=== PATIENT | female | born 1965 | race African-American/Black ===

== ENCOUNTER 2021-12-09 23:25 | Inpatient (IN) | payer MEDICARE, OTHER ==
[~2021-12-09] VITALS: Ht 152.4 cm; Wt 77.7 kg
--- NOTE | 2021-12-09 23:59 | NUR ---
After being triaged, patient was placed in hallway with rescue on their gurny to wait for bed opening in the ER.
--- NOTE | 2021-12-10 | NUR ---
DR. PRIDE AT BEDSIDE, MSE IN PROGRESS.
[2021-12-10] MEDS ORDERED: FAMO20TA8 PO (00:10)
[2021-12-10] MEDS ORDERED: RIFA550T PO (00:10)
[2021-12-10] MEDS ORDERED: GABA-532 PO (00:10)
[2021-12-10] MEDS ORDERED: METH1POW39 MC (00:10)
[2021-12-10] MEDS ORDERED: novolog SUBCUT (00:10)
[2021-12-10] MEDS ORDERED: CHOL100053 PO (00:10)
[2021-12-10] MEDS ORDERED: URSO300C12 PO (00:10)
[2021-12-10] MEDS ORDERED: ASCO500C18 PO (00:10)
[2021-12-10] MEDS ORDERED: PRED2.5T PO (00:10)
[2021-12-10] MEDS ORDERED: SENN-261 PO (00:10)
[2021-12-10] MEDS ORDERED: nifedipine PO (00:10)
[2021-12-10] MEDS ORDERED: SIME80TA15 PO (00:10)
--- NOTE | 2021-12-10 00:30 | NUR ---
Placed in room 2a.
[2021-12-10 00:34] LABS: MEAN CORPUSCULAR HEMOGLOBIN 31.4 uug (24.7-32.8); MEAN CORPUSCULAR VOLUME 93.3 fL (75.5-95.3); PLATELET COUNT (AUTO) 302 K/uL (179-408)
[2021-12-10 00:45] LABS: CARBON DIOXIDE 20 mmol/L (21-32); CHLORIDE 93 mmol/L (98-107); CREATININE 1.3 mg/dL (0.6-1.3); GLUCOSE 88 mg/dL (74-106); POTASSIUM 3.7 mmol/L (3.5-5.1); UREA NITROGEN, BLOOD 25 mg/dL (7-18)
[2021-12-10 01:00] LABS: ALANINE AMINOTRANSFERASE 65 U/L (14-59); ALKALINE PHOSPHATASE 554 U/L (50-136); ASPARTATE AMINOTRANSFERASE 59 U/L (15-37); BILIRUBIN,DIRECT 10.8 mg/dL (0.0-0.2); BILIRUBIN,TOTAL 12.1 mg/dL (0.2-1.0); TOTAL PROTEIN, SERUM 6.2 g/dL (6.4-8.2)
--- NOTE | 2021-12-10 01:27 | NUR ---
PT IS RESTING COMFORTABLY, DAUGHTER JANAY AT BEDSIDE. DENIES ANY PAIN/DISCOMFORT AT THIS TIME.
[2021-12-10 02:04] LABS: *BILIRUBIN,URIN 3+ (NEGATIVE); *BLOOD, URINE TRACE (NEGATIVE); *COLOR,URINE AMBER (YELLOW); *KETONES,URINE TRACE (NEGATIVE); LEUKOCYTE ESTERASE ,URINE 3+ (NEGATIVE); NITRITE, URINE NEGATIVE (NEGATIVE); PH,URINE 6.5 (5.0-8.0); UGLUCOSE NEGATIVE (NEGATIVE)
[2021-12-10 02:05] LABS: *CLARITY,URINE HAZY (CLEAR)
[2021-12-10 02:11] LABS: BACTERIA,URINE MANY /HPF (NONE SEEN); SQUAMOUS EPITHELIAL CELL,UR FEW /HPF (NONE SEEN); WBC,URINE 20-50 /HPF (0-3)
[2021-12-10] MEDS ORDERED: AZITHROMYCIN IV 500 MG in IV DEXTROSE 5% 250 ML IV ONE (02:15)
[2021-12-10] MEDS ORDERED: PIPERACILLIN SODIUM/TAZOBACTAM 3.375 G in IV DEXTROSE 5% 50 ML IV ONE (02:15)
[2021-12-10] MEDS ORDERED: AZITHROMYCIN 500MG/ D5W 250ML IVPB **ER PYXIS ONLY IV ONE (02:17)
[2021-12-10] MEDS ORDERED: PIPERACILLIN/TAZOBACTAM/D5W 50 ML IV ONE (02:17)
[2021-12-10] MEDS ORDERED: IV NORMAL SALINE 500 ML IV ONE (03:00)
--- NOTE | 2021-12-10 03:01 | NUR ---
CALLED [facility], SARY ZAMORANO.
[2021-12-10] MEDS ORDERED: ONDANSETRON 4 MG/2 ML VIAL IV PRN (03:15)
[2021-12-10] MEDS ORDERED: SIMETHICONE 80 MG TAB.CHEW PO PRN (03:15)
[2021-12-10] MEDS ORDERED: REMEDY ESSENTIAL ZINC PASTE 113 GM TP PRN (03:15)
--- NOTE | 2021-12-10 05:15 | NUR ---
GAVE REPORT TO
--- NOTE | 2021-12-10 05:40 | NUR ---
Received pt from er via christine. Under the care of Deep Tirado DNP. Dx: Sepsis .Belonging list done. Admission process and care plan initiated. Pt in no acute distress. intermediate assessment done. Vital signs within normal limit. Safety and comfort provided. Will endorse to incoming nurse and will continue to monitor.
--- NOTE | 2021-12-10 05:47 | NUR ---
Pt. admitted to Med Surg , under care of Dr.Noel Tirado Dx: UTI Belongs List completed
[2021-12-10] MEDS ORDERED: PIPERACILLIN SODIUM/TAZOBACTAM 3.375 G in IV DEXTROSE 5% 50 ML IV SCH (06:00)
[2021-12-10] MEDS: IV NS 1000 ML 1,000 ML IV PRN (06:08)
[2021-12-10] MEDS: PANTOPRAZOLE SODIUM 40 MG TABLET.DR PO SCH (06:10)
[2021-12-10] MEDS ORDERED: NIFE-35 PO (07:39)
[2021-12-10 08:33] LABS: CREATININE 1.2 mg/dL (0.6-1.3); POTASSIUM 3.6 mmol/L (3.5-5.1)
[2021-12-10] MEDS: SENNOSIDES 1 TABLET PO SCH ×2 (09:00→16:03)
[2021-12-10] MEDS ORDERED: predniSONE 2.5 MG TABLET PO SCH (09:00)
[2021-12-10] MEDS: ASCORBIC ACID 500 MG TABLET PO SCH (09:20)
[2021-12-10] MEDS: predniSONE 5 MG TABLET PO SCH (09:20)
[2021-12-10] MEDS: RIFAXIMIN 550 MG TABLET PO SCH ×2 (09:21→16:03)
[2021-12-10] MEDS: GABAPENTIN 100 MG CAPSULE PO SCH ×2 (09:21→16:02)
[2021-12-10] MEDS: CHOLECALCIFEROL 1,000 UNIT TABLET PO SCH (09:21)
[2021-12-10] MEDS: URSODIOL 300 MG CAPSULE PO SCH ×3 (09:21→16:04)
[2021-12-10] MEDS: NIFEdipine XL 30 MG TABSR PO SCH (09:41)
[2021-12-10] MEDS ORDERED: PIPERACILLIN SODIUM/TAZOBACTAM 3.375 G in IV DEXTROSE 5% 100 ML IV SCH (10:00)
[2021-12-10] MEDS ORDERED: DEXTROSE 50% 50 ML DISP.SYRIN IV PRN (11:45)
--- NOTE | 2021-12-10 11:52 | NUR ---
Pt is a/o x 4, reports that she is tired and wants to sleep. No reaction noted or reported post antibiotic treatment. Pt is verbal and able to express needs. Comfort measures provided, call light within reach. Will continue to monitor.
[2021-12-10 12:00] VITALS: BP 105/42
[2021-12-10] MEDS: BLOOD SUGAR DIAGNOSTIC 1 EACH STRIP VI SCH ×2 (15:56→21:15)
[2021-12-10 15:58] VITALS: BP 111/48
[2021-12-10] MEDS: INSULIN REGULAR, HUMAN 300 UNIT/3 ML VIAL SQ PRN ×2 (15:58→21:29)
[2021-12-10] MEDS: CEFTAZIDIME 2 G in IV DEXTROSE 5% 100 ML IV SCH (18:16)
--- NOTE | 2021-12-10 19:15 | NUR ---
Received patient on bed, sleeping, with ongoing 0.9 NS 1L at 75cc/hr, not in labored breathing. Safety precautions provided call light placed within reach.
[2021-12-10 20:04] VITALS: BP 110/68
[2021-12-10] MEDS: AZITHROMYCIN 250 MG TABLET PO SCH (21:08)
--- NOTE | 2021-12-10 21:10 | NUR ---
Patient awake, offered soup and crackers, able to eat independently, ate 75%. Oral antibiotic given as ordered. Assisted to repositioned for comfort.
[2021-12-11] MEDS: CEFTAZIDIME 2 G in IV DEXTROSE 5% 100 ML IV SCH ×3 (01:02→17:05)
[2021-12-11 04:00] VITALS: BP 97/45
--- NOTE | 2021-12-11 05:32 | NUR ---
Slept well, no complaint of pain, no signs of distress. Repositioned for comfort, incontinent both bowel and bladder. Still with ongoing IVF 0.9 NS 1L at 75cc/hr. To continue to monitor.
[2021-12-11] MEDS: PANTOPRAZOLE SODIUM 40 MG TABLET.DR PO SCH (06:12)
[2021-12-11] MEDS: BLOOD SUGAR DIAGNOSTIC 1 EACH STRIP VI SCH ×4 (06:21→21:15)
--- NOTE | 2021-12-11 06:26 | NUR ---
blood sugar 88mg/dl, patient fully awake and alert oriented x4, no signs of distress noted. Offered a glass of juice. Able to drink 100%.
[2021-12-11 06:48] LABS: HEMATOCRIT 24.8 % (31.2-41.9); MEAN CORPUSCULAR HEMOGLOBIN 30.8 uug (24.7-32.8); MEAN CORPUSCULAR VOLUME 92.5 fL (75.5-95.3); PLATELET COUNT (AUTO) 292 K/uL (179-408)
[2021-12-11 07:02] LABS: ALANINE AMINOTRANSFERASE 53 U/L (14-59); ALKALINE PHOSPHATASE 460 U/L (50-136); ASPARTATE AMINOTRANSFERASE 37 U/L (15-37); BILIRUBIN,TOTAL 11.6 mg/dL (0.2-1.0); CARBON DIOXIDE 21 mmol/L (21-32); CHLORIDE 96 mmol/L (98-107); CREATININE 1.3 mg/dL (0.6-1.3); GLUCOSE 96 mg/dL (74-106); MAGNESIUM 1.8 mg/dL (1.8-2.4); PHOSPHOROUS 3.8 mg/dL (2.5-4.9); POTASSIUM 3.6 mmol/L (3.5-5.1); TOTAL PROTEIN, SERUM 5.8 g/dL (6.4-8.2); UREA NITROGEN, BLOOD 23 mg/dL (7-18)
[2021-12-11 07:36] LABS: BAND % (MANUAL) 1 % (0-10); EOSINOPHILS % (MANUAL) 1 % (0-8); LYMPHOCYTES % (MANUAL) 5 % (20-40); MONOCYTES % (MANUAL) 5 % (2-10); NEUTROPHILS % (MANUAL) 88 % (42-75)
[2021-12-11 07:47] LABS: CREATINE KINASE, TOTAL < 7 U/L (26-192)
[2021-12-11] MEDS: NIFEdipine XL 30 MG TABSR PO SCH (08:55)
[2021-12-11] MEDS: predniSONE 5 MG TABLET PO SCH (08:55)
[2021-12-11] MEDS: GABAPENTIN 100 MG CAPSULE PO SCH ×2 (08:55→17:07)
[2021-12-11] MEDS: SENNOSIDES 1 TABLET PO SCH ×2 (08:55→17:07)
[2021-12-11] MEDS: ASCORBIC ACID 500 MG TABLET PO SCH (08:55)
[2021-12-11] MEDS: CHOLECALCIFEROL 1,000 UNIT TABLET PO SCH (08:56)
[2021-12-11] MEDS: RIFAXIMIN 550 MG TABLET PO SCH ×2 (08:56→17:07)
[2021-12-11] MEDS: URSODIOL 300 MG CAPSULE PO SCH ×3 (08:57→17:07)
[2021-12-11] MEDS ORDERED: IV NORMAL SALINE 500 ML BAG IV ONE (09:00)
--- NOTE | 2021-12-11 09:00 | NUR ---
received patient sleeping in no apparent distress. patient denies any pain at this time. Morning medication administered and tolerated well. IV site in place and patent at this time, x1 time bolus of NS 500cc administered and tolerated well. v/sbp:112/43 p:73, morning medication administered and tolerated well. reminded patient to use call light for assistance.
[2021-12-11] MEDS ORDERED: IV NORMAL SALINE 500 ML IV ONE (09:15)
[2021-12-11 11:44] VITALS: BP 120/47
[2021-12-11 16:19] VITALS: BP 103/39
[2021-12-11 16:48] LABS: *BILIRUBIN,URIN 3+ (NEGATIVE); *BLOOD, URINE NEGATIVE (NEGATIVE); *CLARITY,URINE SLIGHTLY CLOUDY (CLEAR); *COLOR,URINE YELLOW (YELLOW); *KETONES,URINE NEGATIVE (NEGATIVE); *UROBILINOGEN,URINE 0.2 E.U./dl (NORMAL); LEUKOCYTE ESTERASE ,URINE 3+ (NEGATIVE); NITRITE, URINE NEGATIVE (NEGATIVE); UGLUCOSE NEGATIVE (NEGATIVE)
[2021-12-11 17:00] LABS: *CREATININE,URINE 40.7 mg/dL (30-125); *URINE TOTAL PROTEIN RANDOM 38.9 mg/dL (<150/24HR)
[2021-12-11] MEDS: INSULIN REGULAR, HUMAN 300 UNIT/3 ML VIAL SQ PRN (17:17)
[2021-12-11] MEDS: IV NS 1000 ML 1,000 ML IV PRN (17:24)
[2021-12-11 20:00] VITALS: BP 97/44
[2021-12-11] MEDS: AZITHROMYCIN 250 MG TABLET PO SCH (21:06)
[2021-12-11 23:33] LABS: BACTERIA,URINE MODERATE /HPF (NONE SEEN); RBC,URINE 0-3 /HPF (0-3); SQUAMOUS EPITHELIAL CELL,UR MODERATE /HPF (NONE SEEN)
[2021-12-12] MEDS: CEFTAZIDIME 2 G in IV DEXTROSE 5% 100 ML IV SCH ×2 (01:36→09:56)
[2021-12-12 04:20] VITALS: BP 101/38
[2021-12-12] MEDS: PANTOPRAZOLE SODIUM 40 MG TABLET.DR PO SCH (06:07)
[2021-12-12] MEDS: BLOOD SUGAR DIAGNOSTIC 1 EACH STRIP VI SCH ×4 (06:29→21:00)
--- NOTE | 2021-12-12 06:35 | NUR ---
blood sugar is 60; D10 250 ml started.
[2021-12-12 07:09] LABS: MEAN CORPUSCULAR HEMOGLOBIN 31.9 uug (24.7-32.8); MEAN CORPUSCULAR VOLUME 93.8 fL (75.5-95.3); PLATELET COUNT (AUTO) 306 K/uL (179-408)
[2021-12-12 07:31] LABS: BILIRUBIN,DIRECT 9.5 mg/dL (0.0-0.2); BILIRUBIN,TOTAL 10.7 mg/dL (0.2-1.0); CREATININE 1.3 mg/dL (0.6-1.3); MAGNESIUM 1.8 mg/dL (1.8-2.4); PHOSPHOROUS 3.3 mg/dL (2.5-4.9); POTASSIUM 3.6 mmol/L (3.5-5.1); TOTAL PROTEIN, SERUM 5.3 g/dL (6.4-8.2)
[2021-12-12 07:37] LABS: BILIRUBIN,DIRECT 9.3 mg/dL (0.0-0.2); BILIRUBIN,TOTAL 10.7 mg/dL (0.2-1.0)
--- NOTE | 2021-12-12 07:55 | NUR ---
Report given to am nurse blood sugar is 187 no signs of diabetic reaction note. Medication given as ordered no signs of respiratory distress noted. Will continue to monitor for safety.
[2021-12-12] MEDS: CHOLECALCIFEROL 1,000 UNIT TABLET PO SCH (08:34)
[2021-12-12] MEDS: predniSONE 5 MG TABLET PO SCH (08:34)
[2021-12-12] MEDS: ASCORBIC ACID 500 MG TABLET PO SCH (08:34)
[2021-12-12] MEDS: SENNOSIDES 1 TABLET PO SCH ×2 (08:34→16:49)
[2021-12-12] MEDS: GABAPENTIN 100 MG CAPSULE PO SCH ×2 (08:34→16:49)
[2021-12-12] MEDS: NIFEdipine XL 30 MG TABSR PO SCH (08:39)
[2021-12-12] MEDS: RIFAXIMIN 550 MG TABLET PO SCH ×2 (08:40→16:50)
[2021-12-12] MEDS: URSODIOL 300 MG CAPSULE PO SCH ×3 (08:49→16:49)
[2021-12-12 09:06] LABS: A/G RATIO 0.5 (0.7-1.7); ALBUMIN 1.7 g/dL (2.9-4.4); ALPHA-1-GLOBULIN 0.2 g/dL (0.0-0.4); ALPHA-2-GLOBULIN 0.7 g/dL (0.4-1.0); BETA GLOBULIN 1.2 g/dL (0.7-1.3); GAMMA GLOBULIN 1.2 g/dL (0.4-1.8); GLOBULIN, TOTAL 3.4 g/dL (2.2-3.9); M-SPIKE Not Observed g/dL (Not Observed)
[2021-12-12] MEDS: IV NS 1000 ML 1,000 ML IV PRN (09:56)
[2021-12-12 11:18] VITALS: BP 102/40
[2021-12-12] MEDS: methylPREDNISolone SOD SUCC 40 MG/ML VIAL IV SCH ×2 (11:34→21:18)
--- NOTE | 2021-12-12 12:35 | NUR ---
Patient left for [facility] for MRCP without contrast.
[2021-12-12] MEDS: levoFLOXacin 750 MG TABLET PO SCH (14:36)
[2021-12-12] MEDS ORDERED: levoFLOXacin 750 MG TABLET PO SCH (15:00)
--- NOTE | 2021-12-12 15:15 | NUR ---
Patient back from MRCP at [place]
[2021-12-12 16:13] VITALS: BP 111/54
[2021-12-12] MEDS: INSULIN REGULAR, HUMAN 300 UNIT/3 ML VIAL SQ PRN ×2 (16:49→22:44)
--- NOTE | 2021-12-12 18:47 | NUR ---
Patient received care well today throughout shift. Patient with no complaints of distress or discomfort. Patient able to make needs known. IV site intact and patent. Bed left in lowest position with call light within reach. Comfort measures provided. Will endorse information to PM nurse.
--- NOTE | 2021-12-12 20:00 | NUR ---
Received pt in room alert and oriented x4. Pt denies pain and assisted admin dir Tejallia with pericare no signs of distress noted. Pt was given medication as ordered no signs of adverse reaction noted. Call light within reach bed in low postions and cpt is monitored hourly.
[2021-12-12 20:17] VITALS: BP 128/56
[2021-12-12] MEDS: AZITHROMYCIN 250 MG TABLET PO SCH (21:18)
--- NOTE | 2021-12-12 22:00 | NUR ---
Pt hs blood sugar is 195 pt requested wants insulin to be held because blood sugar was low in the am afraid she might have a low blood sugar pt. medication held.
[2021-12-13] MEDS: IV NS 1000 ML 1,000 ML IV PRN ×2 (01:33→14:52)
[2021-12-13] MEDS: MORPHINE SULFATE 2 MG/1 ML DISP.SYRIN IV PRN (03:44)
[2021-12-13 04:32] VITALS: BP 127/74
[2021-12-13 06:46] LABS: HEMATOCRIT 24.4 % (31.2-41.9); MEAN CORPUSCULAR HEMOGLOBIN 31.7 uug (24.7-32.8); MEAN CORPUSCULAR VOLUME 93.7 fL (75.5-95.3); PLATELET COUNT (AUTO) 361 K/uL (179-408)
[2021-12-13 07:00] LABS: BILIRUBIN,TOTAL 11.3 mg/dL (0.2-1.0); CREATININE 1.3 mg/dL (0.6-1.3); MAGNESIUM 1.9 mg/dL (1.8-2.4); POTASSIUM 3.9 mmol/L (3.5-5.1); TOTAL PROTEIN, SERUM 5.8 g/dL (6.4-8.2)
[2021-12-13] MEDS: BLOOD SUGAR DIAGNOSTIC 1 EACH STRIP VI SCH ×4 (07:05→21:20)
[2021-12-13] MEDS: PANTOPRAZOLE SODIUM 40 MG TABLET.DR PO SCH (07:05)
[2021-12-13 08:00] LABS: BILIRUBIN,DIRECT 10.1 mg/dL (0.0-0.2); BILIRUBIN,TOTAL 11.4 mg/dL (0.2-1.0)
[2021-12-13] MEDS: methylPREDNISolone SOD SUCC 40 MG/ML VIAL IV SCH ×2 (08:28→20:19)
[2021-12-13] MEDS: ASCORBIC ACID 500 MG TABLET PO SCH (08:29)
[2021-12-13] MEDS: CHOLECALCIFEROL 1,000 UNIT TABLET PO SCH (08:29)
[2021-12-13] MEDS: GABAPENTIN 100 MG CAPSULE PO SCH ×2 (08:29→16:12)
[2021-12-13] MEDS: SENNOSIDES 1 TABLET PO SCH ×2 (08:29→16:12)
[2021-12-13] MEDS: RIFAXIMIN 550 MG TABLET PO SCH ×2 (08:31→16:12)
[2021-12-13] MEDS: URSODIOL 300 MG CAPSULE PO SCH ×3 (08:31→16:12)
[2021-12-13] MEDS: INSULIN REGULAR, HUMAN 300 UNIT/3 ML VIAL SQ PRN ×4 (08:44→21:21)
[2021-12-13] MEDS: NIFEdipine XL 30 MG TABSR PO SCH (08:56)
[2021-12-13] MEDS ORDERED: predniSONE 5 MG TABLET PO SCH (09:00)
[2021-12-13 09:35] LABS: CREATININE 1.3 mg/dL (0.6-1.3); POTASSIUM 3.9 mmol/L (3.5-5.1)
[2021-12-13 11:17] VITALS: BP 126/48
[2021-12-13 12:00] VITALS: BP 116/46
[2021-12-13 15:51] VITALS: BP 135/52
--- NOTE | 2021-12-13 18:27 | NUR ---
Patient tolerated care well throughout shift with no complaints of pain or distress. Patient's blood sugar maintained with appropriate insulin sliding scale dosage. New IV site placed on patient's left wrist 22 G. IV site is patent and intact. Bed left in lowest position with call light within reach. Comfort measures provided. Will endorse information to PM nurse.
--- NOTE | 2021-12-13 19:30 | NUR ---
Received patient lying in bed. Eating her dinner. Daughter at bedside. AAOx4. In no acute distress. Denies any pain or SOB. IV site on left wrist area intact and patent. IVF infusing. Needs assessed and attended to. Safety measure initiated and call light within reached.
[2021-12-13 20:14] VITALS: BP 123/48
[2021-12-13] MEDS: AZITHROMYCIN 250 MG TABLET PO SCH (21:21)
[2021-12-14] MEDS: MORPHINE SULFATE 2 MG/1 ML DISP.SYRIN IV PRN (04:14)
[2021-12-14 04:46] VITALS: BP 147/69
[2021-12-14] MEDS: PANTOPRAZOLE SODIUM 40 MG TABLET.DR PO SCH (06:05)
[2021-12-14] MEDS: IV NS 1000 ML 1,000 ML IV PRN ×2 (06:05→19:26)
--- NOTE | 2021-12-14 06:16 | NUR ---
Patient slept well light night. Denies any SOB. Complained of lower back pain and given Morphine 1mG via IV x1 and effective. IV site on left wrist intact and patent. IVF infusing. Needs attended to and met. Safety measure maintained and call light within reached.
--- NOTE | 2021-12-14 06:20 | NUR ---
Morphine 2mg via IV given x1.
[2021-12-14] MEDS: BLOOD SUGAR DIAGNOSTIC 1 EACH STRIP VI SCH ×4 (06:37→21:03)
[2021-12-14 06:38] LABS: HEMATOCRIT 25.9 % (31.2-41.9); MEAN CORPUSCULAR HEMOGLOBIN 31.3 uug (24.7-32.8); MEAN CORPUSCULAR VOLUME 93.4 fL (75.5-95.3); PLATELET COUNT (AUTO) 378 K/uL (179-408)
[2021-12-14 06:56] LABS: BILIRUBIN,DIRECT 10.1 mg/dL (0.0-0.2); BILIRUBIN,TOTAL 11.3 mg/dL (0.2-1.0); CREATININE 1.3 mg/dL (0.6-1.3); MAGNESIUM 2.2 mg/dL (1.8-2.4); PHOSPHOROUS 3.4 mg/dL (2.5-4.9); POTASSIUM 3.9 mmol/L (3.5-5.1); TOTAL PROTEIN, SERUM 5.9 g/dL (6.4-8.2)
[2021-12-14 06:58] LABS: BILIRUBIN,DIRECT 10.1 mg/dL (0.0-0.2); BILIRUBIN,TOTAL 11.3 mg/dL (0.2-1.0)
[2021-12-14] MEDS: methylPREDNISolone SOD SUCC 40 MG/ML VIAL IV SCH ×2 (08:24→20:46)
[2021-12-14] MEDS: GABAPENTIN 100 MG CAPSULE PO SCH ×2 (08:25→16:49)
[2021-12-14] MEDS: URSODIOL 300 MG CAPSULE PO SCH ×3 (08:25→16:49)
[2021-12-14] MEDS: predniSONE 10 MG TABLET PO SCH (08:25)
[2021-12-14] MEDS: RIFAXIMIN 550 MG TABLET PO SCH ×2 (08:25→16:49)
[2021-12-14] MEDS: SENNOSIDES 1 TABLET PO SCH ×2 (08:26→16:49)
[2021-12-14] MEDS: ASCORBIC ACID 500 MG TABLET PO SCH (08:26)
[2021-12-14] MEDS: NIFEdipine XL 30 MG TABSR PO SCH (08:26)
[2021-12-14] MEDS: CHOLECALCIFEROL 1,000 UNIT TABLET PO SCH (08:26)
[2021-12-14] MEDS: INSULIN REGULAR, HUMAN 300 UNIT/3 ML VIAL SQ PRN ×4 (08:27→21:07)
[2021-12-14 11:51] VITALS: BP 156/63
--- NOTE | 2021-12-14 13:00 | NUR ---
Seen by OSKAR Vora. Patient may possibly DC tomorrow, states her and Dr. Conrad are waiting for embedded software architect from [place] to contact them about blood results, to compare if results are baseline or acute.
[2021-12-14] MEDS: levoFLOXacin 750 MG TABLET PO SCH (13:39)
[2021-12-14 16:35] VITALS: BP 138/53
--- NOTE | 2021-12-14 20:00 | NUR ---
RECEIVED REPORT FROM AM NURSE MECHE PT IS ALERT AND ORIENTED X4 FAMILY MEMBERS AT BEDSIDE NO SIGNS OF RESPIRATORY DISTRESS NOTED PATIENT DENIES PAIN FALL AND SAFETY PRECAUTION MAINTAINED CALL LIGHT WITHIN REACH.wILL CONTINUE TO MONITOR HOURLY.
[2021-12-14 20:19] VITALS: BP 134/53
--- NOTE | 2021-12-14 21:00 | NUR ---
PT BLOOD SUGAR IS 173 GAVE 3 UNITS OF HUMULIN R NO SIGNS OF DIABETIC REACTION NOTED. WILL CONTINUE TO MONITOR FOR SAFETY.
[2021-12-15 04:26] VITALS: BP 158/67
[2021-12-15] MEDS: PANTOPRAZOLE SODIUM 40 MG TABLET.DR PO SCH (05:57)
[2021-12-15 06:03] LABS: HEMATOCRIT 27.9 % (31.2-41.9); MEAN CORPUSCULAR HEMOGLOBIN 31.7 uug (24.7-32.8); MEAN CORPUSCULAR VOLUME 93.4 fL (75.5-95.3); PLATELET COUNT (AUTO) 356 K/uL (179-408)
[2021-12-15 06:14] LABS: BILIRUBIN,DIRECT 10.1 mg/dL (0.0-0.2); BILIRUBIN,TOTAL 11.3 mg/dL (0.2-1.0)
[2021-12-15 06:26] LABS: BILIRUBIN,DIRECT 10.1 mg/dL (0.0-0.2); BILIRUBIN,TOTAL 11.3 mg/dL (0.2-1.0); CREATININE 1.4 mg/dL (0.6-1.3); MAGNESIUM 2.1 mg/dL (1.8-2.4); PHOSPHOROUS 2.9 mg/dL (2.5-4.9); POTASSIUM 3.7 mmol/L (3.5-5.1); TOTAL PROTEIN, SERUM 6.1 g/dL (6.4-8.2)
[2021-12-15] MEDS: BLOOD SUGAR DIAGNOSTIC 1 EACH STRIP VI SCH ×4 (08:04→20:48)
[2021-12-15] MEDS: methylPREDNISolone SOD SUCC 40 MG/ML VIAL IV SCH ×2 (08:04→20:48)
[2021-12-15] MEDS: CHOLECALCIFEROL 1,000 UNIT TABLET PO SCH (08:05)
[2021-12-15] MEDS: GABAPENTIN 100 MG CAPSULE PO SCH ×2 (08:05→17:30)
[2021-12-15] MEDS: RIFAXIMIN 550 MG TABLET PO SCH ×2 (08:05→17:30)
[2021-12-15] MEDS: predniSONE 10 MG TABLET PO SCH (08:05)
[2021-12-15] MEDS: URSODIOL 300 MG CAPSULE PO SCH ×3 (08:05→17:30)
[2021-12-15] MEDS: SENNOSIDES 1 TABLET PO SCH ×2 (08:05→17:30)
[2021-12-15] MEDS: ASCORBIC ACID 500 MG TABLET PO SCH (08:05)
[2021-12-15] MEDS: NIFEdipine XL 30 MG TABSR PO SCH (08:13)
[2021-12-15] MEDS: INSULIN REGULAR, HUMAN 300 UNIT/3 ML VIAL SQ PRN ×4 (08:14→20:51)
[2021-12-15] MEDS: IV NS 1000 ML 1,000 ML IV PRN (10:30)
[2021-12-15 11:43] VITALS: BP 150/60
[2021-12-15 16:25] VITALS: BP 140/65
--- NOTE | 2021-12-15 18:48 | NUR ---
Patient is stable this shift. AAOx4, no c/o pain or any distress. Safety measures continued. Needs extensive assist for ADL's. Blood sugar checks with insulin coverage continued, no adverese reaction. All needs attended, call light within reach.
--- NOTE | 2021-12-15 19:30 | NUR ---
Received pt awake, alert and orientedx4. Pt in no acute distress.Pt can make needs known. . Sclera yellowish. Iv intact. Safety and comfort provided.Will continue to monitor.
[2021-12-15 20:00] VITALS: BP 136/56
[2021-12-16] MEDS: IV NS 1000 ML 1,000 ML IV PRN ×2 (01:44→14:42)
[2021-12-16 04:00] VITALS: BP 158/67
[2021-12-16] MEDS: PANTOPRAZOLE SODIUM 40 MG TABLET.DR PO SCH (06:06)
--- NOTE | 2021-12-16 06:21 | NUR ---
Pt slept comfortably.Pt can make her needs known. Pt iv intact and patent. Prescribed medication given and pt tolerated it well. Safety and comfort provided.Pt observed to have sutures on left posterior back. All needs are met. Vital signs within normal limit. Will endorse to incoming nurse for continuity of care.
[2021-12-16] MEDS: BLOOD SUGAR DIAGNOSTIC 1 EACH STRIP VI SCH ×4 (06:37→21:35)
[2021-12-16 06:44] LABS: HEMATOCRIT 27.7 % (31.2-41.9); MEAN CORPUSCULAR HEMOGLOBIN 31.5 uug (24.7-32.8); PLATELET COUNT (AUTO) 328 K/uL (179-408)
[2021-12-16 06:57] LABS: NEUTROPHILS % (MANUAL) 0 % (42-75)
[2021-12-16 07:07] LABS: BILIRUBIN,DIRECT 9.4 mg/dL (0.0-0.2); BILIRUBIN,TOTAL 10.6 mg/dL (0.2-1.0)
[2021-12-16 07:22] LABS: BILIRUBIN,DIRECT 9.5 mg/dL (0.0-0.2); BILIRUBIN,TOTAL 10.6 mg/dL (0.2-1.0); CREATININE 1.4 mg/dL (0.6-1.3); MAGNESIUM 2.1 mg/dL (1.8-2.4); PHOSPHOROUS 2.7 mg/dL (2.5-4.9); POTASSIUM 3.8 mmol/L (3.5-5.1); TOTAL PROTEIN, SERUM 5.6 g/dL (6.4-8.2)
[2021-12-16] MEDS: ASCORBIC ACID 500 MG TABLET PO SCH (08:28)
[2021-12-16] MEDS: SENNOSIDES 1 TABLET PO SCH ×2 (08:28→17:21)
[2021-12-16] MEDS: predniSONE 10 MG TABLET PO SCH (08:28)
[2021-12-16] MEDS: methylPREDNISolone SOD SUCC 40 MG/ML VIAL IV SCH ×2 (08:28→21:35)
[2021-12-16] MEDS: CHOLECALCIFEROL 1,000 UNIT TABLET PO SCH (08:28)
[2021-12-16] MEDS: GABAPENTIN 100 MG CAPSULE PO SCH ×2 (08:28→17:21)
[2021-12-16] MEDS: NIFEdipine XL 30 MG TABSR PO SCH (08:31)
[2021-12-16] MEDS: URSODIOL 300 MG CAPSULE PO SCH ×3 (08:32→17:21)
[2021-12-16] MEDS: INSULIN REGULAR, HUMAN 300 UNIT/3 ML VIAL SQ PRN ×4 (08:32→21:37)
[2021-12-16] MEDS: RIFAXIMIN 550 MG TABLET PO SCH ×2 (08:33→17:21)
--- NOTE | 2021-12-16 11:00 | NUR ---
Requested from patient to provide authorization for release of medical information from [facility]. Patient signed paperwork and administrative secretary faxed to Dr. Tirado at [facility]. Patient also called and left an urgent message for Dr Tirado with his nurse to call this hospital back to provide report on medical status to Jarred formal wear rental clerk or GI MD, Dr. Bates.
[2021-12-16 11:55] VITALS: BP 131/61
--- NOTE | 2021-12-16 15:51 | NUR ---
Patient stable. No complaints of pain. Left hand iv with NS infusing at 75 cc/hr. clinical pharmacy manager is working on discharge plans, transportation to be provided with [place]. Addendum: 12/16/21 at 1558 by ELVIN BHATTI RN Seen by GI doctor with no new orders. States he will contact hospitalist.
[2021-12-16 16:24] VITALS: BP 156/70
[2021-12-16 20:44] VITALS: BP 123/57
[2021-12-17 04:00] VITALS: BP 113/40
[2021-12-17] MEDS: PANTOPRAZOLE SODIUM 40 MG TABLET.DR PO SCH (05:26)
[2021-12-17] MEDS: BLOOD SUGAR DIAGNOSTIC 1 EACH STRIP VI SCH ×4 (05:26→21:06)
[2021-12-17 07:07] LABS: CREATININE 1.4 mg/dL (0.6-1.3); MAGNESIUM 1.9 mg/dL (1.8-2.4); PHOSPHOROUS 2.7 mg/dL (2.5-4.9); POTASSIUM 3.6 mmol/L (3.5-5.1)
--- NOTE | 2021-12-17 07:14 | NUR ---
PATIENT ALERT ORIENTED, NO SOB NO CHEST PAIN, NO COMPLAIN OF PAIN, TURN AND REPOSITION, REQUIRES TOTAL ASSIST WITH ADLS, CONT TO MONITOR.
[2021-12-17 07:20] LABS: HEMATOCRIT 27.7 % (31.2-41.9); MEAN CORPUSCULAR HEMOGLOBIN 31.9 uug (24.7-32.8); MEAN CORPUSCULAR VOLUME 93.7 fL (75.5-95.3); PLATELET COUNT (AUTO) 317 K/uL (179-408)
[2021-12-17 07:32] LABS: LYMPHOCYTES % (MANUAL) 11 % (20-40); MONOCYTES % (MANUAL) 4 % (2-10); NEUTROPHILS % (MANUAL) 85 % (42-75)
[2021-12-17] MEDS ORDERED: predniSONE 10 MG TABLET PO SCH (09:00)
[2021-12-17] MEDS: predniSONE 20 MG TABLET PO SCH (09:34)
[2021-12-17] MEDS: GABAPENTIN 100 MG CAPSULE PO SCH ×2 (09:34→16:56)
[2021-12-17] MEDS: NIFEdipine XL 30 MG TABSR PO SCH (09:37)
[2021-12-17] MEDS: SENNOSIDES 1 TABLET PO SCH ×2 (09:37→16:56)
[2021-12-17] MEDS: SIMETHICONE 80 MG TAB.CHEW PO PRN ×2 (09:37→16:56)
[2021-12-17] MEDS: ASCORBIC ACID 500 MG TABLET PO SCH (09:37)
[2021-12-17] MEDS: CHOLECALCIFEROL 1,000 UNIT TABLET PO SCH (09:37)
[2021-12-17] MEDS: URSODIOL 300 MG CAPSULE PO SCH ×3 (09:39→16:56)
[2021-12-17] MEDS: RIFAXIMIN 550 MG TABLET PO SCH ×2 (09:39→16:56)
[2021-12-17 11:31] VITALS: BP 139/58
[2021-12-17] MEDS: INSULIN REGULAR, HUMAN 300 UNIT/3 ML VIAL SQ PRN ×3 (11:46→21:09)
[2021-12-17] MEDS: IV NS 1000 ML 1,000 ML IV PRN (12:07)
[2021-12-17 16:00] VITALS: BP 125/66
--- NOTE | 2021-12-17 20:00 | NUR ---
PATIENT ALERT ORIENTED, NO SOB NO CHEST PAIN. PATIENT HAS NO COMPLAIN OF PAIN, REQUIRE TOTAL ASSIST WITH ADL'S. KEPT CLEAN DRY AND COMFORTABLE.
[2021-12-17 20:41] VITALS: BP 127/53
[2021-12-18] MEDS: IV NS 1000 ML 1,000 ML IV PRN (02:54)
[2021-12-18] MEDS: MORPHINE SULFATE 2 MG/1 ML DISP.SYRIN IV PRN (05:45)
--- NOTE | 2021-12-18 05:55 | NUR ---
Patient has episode of nausea, but no vomiting, spits clear saliva in small amount, refused zofran but prefer Morphine 2mg iv for abdominal pain, cont to monitor.
[2021-12-18] MEDS: PANTOPRAZOLE SODIUM 40 MG TABLET.DR PO SCH (07:00)
[2021-12-18 07:26] LABS: CREATININE 1.1 mg/dL (0.6-1.3); MAGNESIUM 2.1 mg/dL (1.8-2.4); PHOSPHOROUS 2.8 mg/dL (2.5-4.9); POTASSIUM 3.5 mmol/L (3.5-5.1)
--- NOTE | 2021-12-18 07:45 | NUR ---
no further episode of n/v
[2021-12-18 07:50] LABS: HEMATOCRIT 27.7 % (31.2-41.9); MEAN CORPUSCULAR HEMOGLOBIN 31.5 uug (24.7-32.8); PLATELET COUNT (AUTO) 287 K/uL (179-408)
[2021-12-18] MEDS: BLOOD SUGAR DIAGNOSTIC 1 EACH STRIP VI SCH ×2 (08:02→12:26)
[2021-12-18] MEDS: INSULIN REGULAR, HUMAN 300 UNIT/3 ML VIAL SQ PRN ×2 (08:36→12:27)
[2021-12-18] MEDS: CHOLECALCIFEROL 1,000 UNIT TABLET PO SCH (08:37)
[2021-12-18] MEDS: SIMETHICONE 80 MG TAB.CHEW PO PRN (08:37)
[2021-12-18] MEDS: GABAPENTIN 100 MG CAPSULE PO SCH (08:37)
[2021-12-18] MEDS: predniSONE 20 MG TABLET PO SCH (08:40)
[2021-12-18] MEDS: NIFEdipine XL 30 MG TABSR PO SCH (08:40)
[2021-12-18] MEDS: ASCORBIC ACID 500 MG TABLET PO SCH (08:40)
[2021-12-18] MEDS: SENNOSIDES 1 TABLET PO SCH (08:41)
[2021-12-18] MEDS: RIFAXIMIN 550 MG TABLET PO SCH (08:42)
[2021-12-18] MEDS: URSODIOL 300 MG CAPSULE PO SCH ×2 (08:42→12:27)
--- NOTE | 2021-12-18 09:30 | NUR ---
patient noted with x1 episode of emesis of partially undigested food, zofran prn administered after 45 assessed patient, patient is sleeping at this time, no further episode of emesis.
[2021-12-18 11:23] VITALS: BP 128/65
--- NOTE | 2021-12-18 15:00 | NUR ---
new discharge orders, patient to be discharged home under care of daughter and under [employer]. discharge instructions given to patient reminded to follow up with motorcycle sales associate, to continue with current medication regimen and to return to nearest ER or call 911 if symptoms worsen. patient states understanding. IV site removed minimal bleeding noted, pressure applied and dressing applied.
--- NOTE | 2021-12-18 15:40 | NUR ---
all discharge paperwork signed, belongings list signed all belongings present.
--- NOTE | 2021-12-18 15:56 | NUR ---
2 [employer] of [employer] in unit, report given, all questions answered.
[2021-12-18 22:13] LABS: BAND % (MANUAL) 1 % (0-10); LYMPHOCYTES % (MANUAL) 9 % (20-40); MONOCYTES % (MANUAL) 8 % (2-10); NEUTROPHILS % (MANUAL) 82 % (42-75)
== END 2021-12-18 15:59 | disposition home health service (06) | DRG 871 ==
LOC: ER 23:31 → MEDSURG3 12-10 05:19
PROVIDERS: ADMIT Registered Nurse
DX: A41.9 Sepsis, unspecified organism (principal); J15.9 Unspecified bacterial pneumonia; E87.1 Hypo-osmolality and hyponatremia; N39.0 Urinary tract infection, site not specified; E46 Unspecified protein-calorie malnutrition; N17.9 Acute kidney failure, unspecified; M35.1 Other overlap syndromes; K75.4 Autoimmune hepatitis; E11.22 Type 2 diabetes mellitus with diabetic chronic kidney disease; E11.40 Type 2 diabetes mellitus with diabetic neuropathy, unspecified; E86.1 Hypovolemia; K21.9 Gastro-esophageal reflux disease without esophagitis; Z90.49 Acquired absence of other specified parts of digestive tract; D63.8 Anemia in other chronic diseases classified elsewhere; N18.9 Chronic kidney disease, unspecified; M21.372 Foot drop, left foot; B96.89 Other specified bacterial agents as the cause of diseases classified elsewhere; E66.9 Obesity, unspecified; Z68.33 Body mass index [BMI] 33.0-33.9, adult; R53.1 Weakness; Z79.52 Long term (current) use of systemic steroids; I12.9 Hypertensive chronic kidney disease with stage 1 through stage 4 chronic kidney disease, or unspecified chronic kidney disease; Z88.1 Allergy status to other antibiotic agents; K74.3 Primary biliary cirrhosis
CPT/HCPCS: 36415; 51702; 70030-TC; 71045; 74181; 76705; 82533; 83605; 83735; 83930; 83935; 83970; 84100; 84155; 84156; 84165; 84300; 84484; 85025; 85610; 85730; 87040; 87077; 87086; 93005; 97161; A4663; A6209; C1758; G0378; J0456; J0713; J1815; J2270; J2405; J2543; J2920; J3490; J7040; J7512; Q0144